=== PATIENT | female | born 1985 | race Caucasian/White ===

== ENCOUNTER 2021-02-28 20:16 | Emergency (ER) | payer BC, SELFPAY ==
[2021-02-28 20:19] VITALS: BP 111/85; BP 120/72; PULSE 104; PULSE 98; RESP 18; TEMP 36.7; O2SAT 100; BMI 18.3
[2021-02-28 20:37] VITALS: BP 103/56; PULSE 97; RESP 16; TEMP 36.6; O2SAT 100
--- NOTE | 2021-02-28 20:49 | PC.NURSE ---
pt a&O, no sob or chest pain, pt place on monitor, vitals sign are stable. no sign of distress at this time. 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 pt denies any self harm. pt is unsure if she wants any help at this time.
--- NOTE | 2021-02-28 20:57 | PC.NURSE ---
provider in to assess pt, provider offered care team or rehab. Pt is refusing at this time.
--- NOTE | 2021-02-28 21:12 | ED.OVERDOSE ---
HPI - Overdose General Chief Complaint: Overdose Stated Complaint: od Time Seen by Provider: 02/28/21 21:12 Source: patient and EMS Mode of arrival: EMS Limitations: no limitations History of Present Illness HPI Narrative: 35 y/o female presenting with an unintentional heroin overdose. EMS was called when she became unresponsive and stopped breathing after using IV heroin with her friend. She was given 2 doses of IN Narcan with improvement in mentation and return of spontaneous breaths. She arrives to the ER AAO X3. Declining any drug detox or production recovery operator. She reports only intermittent use of IV drugs, last use was 3 weeks ago and she never uses a lot. complaint: intentional overdose Onset (ago): minute(s) Intent: unknown How Overdose Was Discovered: called family/friend Context: Accidental Overdose: wanted to get high Treatments Prior to Arrival: narcan Related Data Allergies Allergy/AdvReac Type Severity Reaction Status Date / Time No Known Allergies Allergy Unverified 01/05/20 15:42 Review of Systems Review of Systems: Constitutional: No Fever, No Chills ENT/Mouth: No sore throat, No Swallowing Difficulty Cardiovascular: No Chest Pain, No SOB Respiratory: No Cough, No Sputum Gastrointestinal: No Nausea, No Vomiting, No Diarrhea, No abdominal Pain Musculoskeletal: No joint pain, No Myalgias Skin: No Skin Lesions, No rash Neuro: No Weakness, No Numbness, No Dizziness, + Headache Psych: No Anxiety/Panic, + Depression Heme/Lymph: No Bruising, No Lymphadenopathy PMFSH Past Medical History Attestation statement: The following information was validated with the patient. Social History Social History Alcohol intake: current Patient Tobacco Use Status: Current everyday Tobacco user Substance Use Type: Heroin Advance Directives: No Advance Directives Information Provided: Yes Physical Exam Vital Signs: Vital Signs: Last Vital Signs Temp 97.8 F 02/28/21 22:26 Pulse 89 02/28/21 22:26 Resp 16 02/28/21 22:26 BP 116/73 02/28/21 22:26 Pulse Ox 96 02/28/21 22:26 Body Mass Index 18.3 Appearance: Alert. Oriented X3. Disheveled young female, multiple dried leaves in her hair. Eyes: Pupils equal, round and reactive to light. ENT: Pharynx normal. Neck: Normal inspection. Neck supple. CVS: Normal heart rate and rhythm. Pulses normal. Respiratory: No respiratory distress. Breath sounds normal. Abdomen: Soft and nontender. +BS x4 Skin: Skin warm and dry. Normal skin color. Normal skin turgor. No rashes. Extremities: No lower extremity edema. Neuro: Oriented X 3. Nonfocal, reluctant to answer Course Course Course Narrative: 35-year-old male female presents to the ER with unintentional heroin overdose. She required 2 doses of intranasal Narcan after being found unresponsive and not breathing. She had adequate response and arrives to the ER alert and oriented x3. She is declining any need for care team or production recovery operator. She reports not needing any resources at this time, only uses heroin intermittently per her report. Will monitor in the emergency department given she was just administered intranasal Narcan. Reevaluation(s) Reevaluation #1: After 2 hours in the emergency room patient remained alert and oriented with adequate respirations and mentation. Stable for discharge home, she has sober ride home. Advised detox and drug recovery but she declined. Discharge Plan Discharge Clinical Impression: Drug overdose Qualifiers: Encounter type: initial encounter Injury intent: accidental or unintentional Qualified Code(s): T50.901A - Poisoning by unspecified drugs, medicaments and biological substances, accidental (unintentional), initial encounter Patient Disposition: Home, Self-Care Instructions: Adult Overdose (ED) Additional Instructions: Do not use heroin or fentanyl, it can kill you. Recommend detox & drug recovery program. Follow up with your doctor as needed. Interventions: ED Discharge Assessment Last Done: 02/28/21 22:30 Discharge Date/Time: 02/28/21 22:31
--- NOTE | 2021-02-28 21:57 | HO.SUDE ---
CARE team met with pt to complete SUDE. She denied regular use of opiates, stating she uses every few weeks. She declined to speak more about her substance use and declined resources. Encouraged to let ED staff know if she changes her mind prior to being discharged.
[2021-02-28 22:26] VITALS: BP 116/73; PULSE 89; RESP 16; TEMP 36.6; O2SAT 96
[2021-02-28] MEDS: Naloxone HCl Nasal TAKE HOME 4 MG SPRAY NOSTRILALT (22:30)
== END 2021-02-28 22:31 | disposition home or self-care (01) ==
PROVIDERS: Emergency Provider Internal Medicine
DX: T40.1X1A Poisoning by heroin, accidental (unintentional), initial encounter (principal); Y92.9 Unspecified place or not applicable
CPT/HCPCS: 99283; 99285

== ENCOUNTER 2022-06-15 16:39 | Emergency (ER) | payer BC, SELFPAY ==
[2022-06-15 16:46] VITALS: BP 134/71; PULSE 115; O2SAT 98
[2022-06-15 16:51] VITALS: BP 119/65; PULSE 109; RESP 14; O2SAT 97; BMI 19.5
--- NOTE | 2022-06-15 17:13 | ED_ITS ---
HPI - General Adult General Chief complaint: Overdose Stated complaint: HEROIN OD,8MG NARCAN W/GOOD RESULTS,CPD CUSTODY Time Seen by Provider: 06/15/22 16:48 Source: patient Mode of arrival: ambulatory Limitations: no limitations History of Present Illness HPI narrative: 36-year-old female history of heroin abuse presents to ED for accidental overdose from heroin. Patient states she took heroin from a dealer and when she woke up she was on the ambulance. As per EMS reports patient was given 8 mg of Narcan. Patient does states she in a program and is on Suboxone but has been relapsing. Patient last used heroin couple days ago. Patient presently is asymptomatic and would like to leave. Patietn denies any suicidal/homicidal ideation Related Data Allergies Allergy/AdvReac Type Severity Reaction Status Date / Time No Known Allergies Allergy Verified 06/15/22 16:53 Review of Systems Review of Systems: opoid overdose Yes all other systems are reviewed and are negative [facility] Social History Social History Alcohol intake: current Patient Tobacco Use Status: Current everyday Tobacco user Substance Use Type: Heroin Advance Directives: No Advance Directives Information Provided: No Physical Exam ED Vital Signs: Vital Signs - 24 hr 06/15/22 16:51 Pulse Rate 109 H Respiratory Rate 14 Blood Pressure 119/65 Pulse Oximetry 97 Oxygen Delivery Method Room Air BMI result Body Mass Index 19.5 Const General: cooperative, healthy appearing, comfortable, no acute distress, well developed, alert, awake and Physically active Orientation/consciousness: oriented to person, oriented to place, oriented to time and patient oriented x3 HENMT Head: Yes normal to inspection, Yes No palpable skull fracture present, Yes normocephalic, Yes atraumatic and No abrasion Eyes General: appearance normal, both eyes and all related structures Neck Neck: Yes normal visual inspection, Yes full ROM, Yes no lymphadenopathy, Yes no meningeal signs, Yes trachea midline, Yes supple, No anterior neck swelling and No tender Chest Chest palpation & inspection: normal inspection of the chest and normal palpation of entire chest wall Resp Effort & Inspection: normal respiratory effort and able to speak in complete s entences Auscultation: clear to auscultation bilaterally Cardio Jugular venous distension: no JVD Heart sounds: S1 normal heart sound present and S2 normal heart sound present GI Inspection: Yes normal to inspection and No abdominal wall ecchymosis Palpation (GI): Soft to palpation, not firm, nontender, no guarding and not rigid General: No CVA tenderness and Yes no CVA tenderness Back/Spine/Pelvis Back: no CVA tenderness, No CVA tenderness and No back tenderness Skin General skin exam: no rashes or lesions noted and elasticity normal Neuro General: oriented to person, oriented to place, oriented to time, patient oriented x3, gait normal, tone normal, moves all extremities, Normal light touch and pain sensation, no meningeal signs, no focal motor deficits, CN's II-XI intact bilaterally and normal sensation to monofilament Extrem General: Yes normal to inspection and Yes full ROM Psych Appearance: grossly normal, well kempt and not disheveled Course Course Course Narrative: Does not want to stay in the ED to be watched. Reevaluation(s) Reevaluation #1: Patient educated on respiratory failure and from overdose. patient informed she should remain in the ED for further observation and evaluation to make sure there is no decompensation but she refused. Patient understand risks and still wanted to sign out AMA Time: 17:49 Medications Administered Discontinued Medications Generic Name Dose Route Start Last Admin Trade Name Makeda PRN Reason Stop Dose Admin Naloxone HCl 4 mg 06/15/22 17:13 06/15/22 17:20 Naloxone Hcl Nasal Take Home 4 Mg [place] NOSTRILALT 06/15/22 17:14 4 mg ONCE ONE Administration Medical Decision Making Medical Decision Making [facility] Narrative: 36 Yold female presents to the ED for heroin overdose. patient has history of o poid abuse and is on subaxone. Differential Diagnosis Differential Diagnoses: The differential diagnosis associated with the presentation includes (overddose. REspiratroy distress, respiratory failure) Admission/Observation Consideration of admission/observation: Escalation of care including admission/observation considered Discharge Plan Discharge Clinical Impression: Drug overdose Patient Disposition: Left Against Medical Advice Instructions: Adult Overdose (ED) Additional Instructions: You are signing out against medical advice. There is risk of dying from respiratory failure due to R1 overdose. Recommend further observation during ED visit. Return to ED immediately for any chest pain, shortness of breath, weakness, dizziness, altered mental status, syncope, or any other concerning symptoms. Please follow-up with carpenter apprentice Stand Alone Forms: Against Medical Advice Interventions: [place]-Suicide Risk Severity Scale Last Done: 06/15/22 17:21 ED Discharge Assessment Last Done: 06/15/22 17:21 Discharge Date/Time: 06/15/22 17:24 Print Language: [place]
--- NOTE | 2022-06-15 17:19 | MHC.RECOVSUP ---
? Reason for consult:Recovery Support o Current location: [facility]? o Identified substance use concern: VERA? - Overdose - Support ? Additional information:soccer coach met with pt. and she is not interested in detox or treatment at this time.?
[2022-06-15] MEDS: Naloxone HCl Nasal TAKE HOME 4 MG SPRAY NOSTRILALT (17:20)
== END 2022-06-15 17:24 | disposition left against medical advice (07) ==
PROVIDERS: Emergency Provider Emergency Medicine Emergency Medical Services
DX: T40.1X1A Poisoning by heroin, accidental (unintentional), initial encounter (principal); Y92.9 Unspecified place or not applicable; F11.19 Opioid abuse with unspecified opioid-induced disorder; Z71.51 Drug abuse counseling and surveillance of drug abuser
CPT/HCPCS: 99283